=== PATIENT | female | born 1970 | race Caucasian/White ===

== ENCOUNTER 2017-07-31 01:21 | Emergency (ER) | payer BC ==
[~2017-07-31] VITALS: Ht 167.6 cm; Wt 96.0 kg
[~2017-07-31 01:21] MED LIST: CALC500C70 PO; CHOL100010 PO; FOLI1TAB8 PO; HYDR0.5T PO; METH2.5T PO; MTR600X PO; MULT-506 PO; PLQ200 PO; SPR25 PO
[2017-07-31 01:23] VITALS: TEMP 36.4; Ht 167.6 cm; Wt 96.0 kg
[2017-07-31] MEDS ORDERED: HYDR200T5 PO (01:49)
[2017-07-31] MEDS ORDERED: KETOROLAC TROMETHAMINE 30 MG/ML VIAL IV STA (01:59)
[2017-07-31] MEDS ORDERED: SODIUM CHLORIDE 0.9% 500ML 500 ML IV STA (01:59)
[2017-07-31] MEDS ORDERED: ONDANSETRON INJ 2 MG/ML 2 ML VIAL IV STA (01:59)
[2017-07-31 02:10] LABS: BASO % 0.3 %; BASO ABS # 0.02 K/uL (0-0.2); EOS % 3.3 %; HEMATOCRIT 40.8 % (37-47); IG# 0.02 K/uL (0.00-0.02); LYMPH % 33.2 %; LYMPH ABS # 1.99 K/uL (1.2-3.4); MEAN CELL VOLUME 89.3 fL (80-100); MEAN CORPUSCULAR HEMOGLOBIN 30.6 pg (25-34); MEAN CORPUSCULAR HGB CONC 34.3 g/dl (32-36); MEAN PLATELET VOLUME 10.8 fL (7.4-10.4); MONO % 6.2 %; MONO ABS # 0.37 K/uL (0.11-0.59); NEUT % 56.7 %; NEUT ABS # 3.39 K/uL (1.4-6.5); PLATELET COUNT 170 K/uL (130-400); RED CELL DISTRIBUTION WIDTH SD 41.8 fL (36.4-46.3); WHITE BLOOD COUNT 5.99 K/uL (4.8-10.8)
[2017-07-31 02:18] LABS: ALBUMIN 3.4 gm/dl (3.4-5.0); CALCIUM 8.6 mg/dl (8.5-10.1); CREATININE 1.03 mg/dl (0.60-1.20); POTASSIUM 3.2 mmol/L (3.5-5.1)
[2017-07-31 02:21] LABS: TOTAL PROTEIN 7.4 gm/dl (6.4-8.2)
--- NOTE | 2017-07-31 02:25 | EMERGENCY ROOM VISIT NOTE ---
History Report prepared by Jaylene: Monie Coughlin Under the Supervision of: Nicolas ShawO. First contact with patient: 01:46 Chief Complaint: ABDOMINAL PAIN Stated Complaint: SEVERE ABDOMINAL PAIN NEAR LEFT KIDNEY History of Present Illness The patient is a 47 year old female who presents to the Emergency Room with complaints of constant abdominal pain starting yesterday morning. The patient states that she has had small kidney stones in the past. She reports mid- morning yesterday she started having sharp pain on her left side. She states that she took a Hydrocodone about noon yesterday. She states that this took most of her pain away. She reports that it started to bother her again in the evening so she took another Hydrocodone at 6. She states that she went to bed and woke up with sharp shooting pains this morning. She reports that she took another Hydrocodone at midnight, but it did not help for very long like before. The patient complains of nausea. The patient denies vomiting, fevers, chills, urinary symptoms, cough, rashes, and sores. She notes a history of a hysterectomy and endometriosis. Source of History: patient Onset: yesterday morning Position: abdomen Quality: sharp Timing: constant Modifying Factors (Relieving): other (Hydrocodone) Associated Symptoms: + nausea, No fevers, No chills, No cough, No vomiting, No urinary symptoms, No rash Note: The patient denies sores. Review of Systems See HPI for pertinent positives & negatives. A total of 10 systems reviewed and were otherwise negative. Past Medical & Surgical Medical Problems: (1) Rheumatoid arthritis Surgical Problems: (1) H/O: hysterectomy (2) Hx of hysterectomy Family History Cancer Gallbladder disease Social History Smoking Status: Never Smoker Alcohol Use: none Marital Status: Housing Status: lives with family Occupation Status: employed Current/Historical Medications Scheduled Folic Acid (Folvite), 1 MG PO 6XWK Hydroxychloroquine Sulfate (Hydroxychloroquine Sulfat), 300 MG PO 3XWK Hydroxychloroquine Sulfate (Plaquenil), 200 MG PO DIRECTED Methotrexate (Methotrexate), 1 TAB PO WK Multivitamin (Multivitamin), 1 TAB PO DAILY Ondasetron Odt (Zofran Odt), 4 MG SL Q6H Tamsulosin Hcl (Flomax), 0.4 MG PO DAILY Allergies Coded Allergies: No Known Allergies (Verified , 07/31/17) Physical Exam Vital Signs Date Time Temp Pulse Resp B/P (MAP) Pulse Ox O2 Delivery O2 Flow Rate FiO2 07/31/17 04:07 74 18 130/88 99 Room Air 07/31/17 02:33 85 18 135/84 96 Room Air 07/31/17 02:17 68 18 154/90 97 Room Air 07/31/17 01:23 36.4 78 20 158/96 100 Room Air Physical Exam GENERAL: alert, uncomfortable appearing, well nourished, no distress, non-toxic EYE EXAM: normal conjunctiva, PERRL and EOM's grossly intact OROPHARYNX: no exudate, no erythema, lips, buccal mucosa, and tongue normal and mucous membranes are moist NECK: supple, no nuchal rigidity, no adenopathy, non-tender LUNGS: Clear to auscultation. Normal chest wall mechanics HEART: no murmurs, S1 normal and S2 normal ABDOMEN: abdomen soft, non-tender, normo-active bowel sounds, no masses, no rebound or guarding. BACK: Back is symmetrical on inspection and there is no deformity, no midline tenderness, no CVA tenderness. SKIN: no rashes and no bruising UPPER EXTREMITIES: upper extremities are grossly normal. LOWER EXTREMITIES: No pitting edema. NEURO EXAM: Normal sensorium, cranial nerves II-XII grossly intact, normal speech, no gross weakness of arms, no gross weakness of legs. Medical Decision & Procedures ER Provider Diagnostic Interpretation: Radiology results have been interpreted by the radiologist and reviewed by me. CT ABDOMEN & PELVIS Without Contrast: Comparison: CT abdomen and pelvis 06/10/16 6 mm stone left ureteropelvic junction and mild left hydronephrosis. Numerous additional nonobstructing renal stones bilaterally. Gallbladder is distended and question gallstones and/or sludge. No evidence of gallbladder wall thickening or adjacent inflammatory changes. 1 cm cyst left lobe of liver. Degenerative changes of spine, worse at L4-L5. Radiologist: Kevan Bob MD Study ready at 02:36 and initial results transmitted at 02:45. Laboratory Results 07/31/17 01:45 Red Blood Count 4.57, Mean Corpuscular Volume 89.3, Mean Corpuscular Hemoglobin 30.6, Mean Corpuscular Hemoglobin Concent 34.3, Mean Platelet Volume 10.8, Neutrophils (%) (Auto) 56.7, Lymphocytes (%) (Auto) 33.2, Monocytes (%) (Auto) 6.2, Eosinophils (%) (Auto) 3.3, Basophils (%) (Auto) 0.3, Neutrophils # (Auto) 3.39, Lymphocytes # (Auto) 1.99, Monocytes # (Auto) 0.37, Eosinophils # (Auto) 0.20, Basophils # (Auto) 0.02 07/31/17 01:45 Test 07/31/17 01:45 07/31/17 02:10 White Blood Count 5.99 K/uL (4.8-10.8) Red Blood Count 4.57 M/uL (4.2-5.4) Hemoglobin 14.0 g/dL (12.0-16.0) Hematocrit 40.8 % (37-47) Mean Corpuscular Volume 89.3 fL (80-100) Mean Corpuscular Hemoglobin 30.6 pg (25-34) Mean Corpuscular Hemoglobin Concent 34.3 g/dl (32-36) Platelet Count 170 K/uL (130-400) Mean Platelet Volume 10.8 fL (7.4-10.4) Neutrophils (%) (Auto) 56.7 % Lymphocytes (%) (Auto) 33.2 % Monocytes (%) (Auto) 6.2 % Eosinophils (%) (Auto) 3.3 % Basophils (%) (Auto) 0.3 % Neutrophils # (Auto) 3.39 K/uL (1.4-6.5) Lymphocytes # (Auto) 1.99 K/uL (1.2-3.4) Monocytes # (Auto) 0.37 K/uL (0.11-0.59) Eosinophils # (Auto) 0.20 K/uL (0-0.5) Basophils # (Auto) 0.02 K/uL (0-0.2) RDW Standard Deviation 41.8 fL (36.4-46.3) RDW Coefficient of Variation 13.0 % (11.5-14.5) Immature Granulocyte % (Auto) 0.3 % Immature Granulocyte # (Auto) 0.02 K/uL (0.00-0.02) Anion Gap 8.0 mmol/L (3-11) Est Creatinine Clear Calc Drug Dose 78.0 ml/min Estimated GFR () 74.4 Estimated GFR (Non- 64.2 BUN/Creatinine Ratio 11.8 (10-20) Calcium Level 8.6 mg/dl (8.5-10.1) Total Bilirubin 0.5 mg/dl (0.2-1) Aspartate Amino Transf (AST/SGOT) 26 U/L (15-37) Alanine Aminotransferase (ALT/SGPT) 40 U/L (12-78) Alkaline Phosphatase 86 U/L (45-117) Total Protein 7.4 gm/dl (6.4-8.2) Albumin 3.4 gm/dl (3.4-5.0) Globulin 4.0 gm/dl (2.5-4.0) Albumin/Globulin Ratio 0.9 (0.9-2) Human Chorionic Gonadotropin, Qual NEG (NEG) Urine Color YELLOW Urine Appearance CLEAR (CLEAR) Urine pH 7.5 (4.5-7.5) Urine Specific [place] 1.013 (1.000-1.030) Urine Protein NEG (NEG) Urine Glucose (UA) NEG (NEG) Urine Ketones NEG (NEG) Urine Occult Blood 3+ (NEG) Urine Nitrite NEG (NEG) Urine Bilirubin NEG (NEG) Urine Urobilinogen NEG (NEG) Urine Leukocyte Esterase NEG (NEG) Urine WBC (Auto) 1-5 /hpf (0-5) Urine RBC (Auto) >30 /hpf (0-4) Urine Hyaline Casts (Auto) 1-5 /lpf (0-5) Urine Epithelial Cells (Auto) >30 /lpf (0-5) Urine Bacteria (Auto) NEG (NEG) Laboratory results per my review. Medications Administered Medications (Trade) Dose Ordered Sig/Shankar Route Start Time Stop Time Status Last Admin Dose Admin Ketorolac Tromethamine (Toradol Inj) 30 mg NOW STAT IV 07/31/17 01:59 07/31/17 02:00 DC 07/31/17 02:13 30 MG Sodium Chloride 500 ml @ 999 mls/hr Q31M STAT IV 07/31/17 01:59 07/31/17 02:29 DC 07/31/17 02:13 999 MLS/HR Ondansetron HCl (Zofran Inj) 4 mg NOW STAT IV 07/31/17 01:59 07/31/17 02:00 DC 07/31/17 02:14 4 MG Tamsulosin HCl (Flomax Cap) 0.4 mg NOW ONCE PO 07/31/17 03:45 07/31/17 03:46 DC 07/31/17 04:08 0.4 MG Acetaminophen/ Hydrocodone Bitart (Shelby 5/325 Tab) 1 tab NOW STAT PO 07/31/17 04:02 07/31/17 04:03 DC 07/31/17 04:08 1 TAB ED Course 0148: The patient was evaluated in room B12B. A complete history and physical exam was performed. 0159: Ordered Zofran Inj 4 mg IV, NSS 500 ml @ 999 mls/hr IV, Toradol Inj 30 mg IV. 0335: Upon reevaluation, the patient is feeling better. I discussed the findings and the treatment plan with the patient. She verbalizes agreement and understanding. The patient was discharged home. 0345: Ordered Flomax Cap 0.4 mg PO. 0402: Ordered Shelby 5/325 Tab 1 tab PO. Medical Decision The patient is a 47 year old female who presents to the Emergency Room with complaints of constant abdominal pain starting yesterday morning. Differential diagnosis: Etiologies such as renal colic, appendicitis, diverticulitis, mesenteric ischemia, aortic pathology, infections, inflammatory bowel disease, PUD, biliary pathology, UTI, as well as others were entertained. Patient improved here with medications. No evidence of concurrent infection or worsening renal failure. Doubt concurrent pyelonephritis, no evidence of bacteremia/sepsis. Vital signs stable throughout. Patient started on Flomax, encouraged to drink plenty of water. Discussed need for close follow-up with family doctor and/or urology. Discussed symptoms to watch and return for, discussed use of hydrocodone which she has at home, possible adverse side effects of hydrocodone, she verbalized understanding was agreeable with plan. I do not suspect any additional acute GI or NEON SIGN INST[employer]ER pathology. I do not suspect additional pulmonary pathology. Medication Reconcilliation Current Medication List: was personally reviewed by me Blood Pressure Screening Patient's blood pressure: Elevated blood pressure Blood pressure disposition: Elevated BP felt to be situational Impression Primary Impression: Ureterolithiasis Additional Impression: Renal colic on left side Scribe Attestation The scribe's documentation has been prepared under my direction and personally reviewed by me in its entirety. I confirm that the note above accurately reflects all work, treatment, procedures, and medical decision making performed by me. Departure Information Dispostion Home / Self-Care Prescriptions Ondasetron Odt (ZOFRAN ODT) 4 Mg Tab 4 MG SL Q6H for Nausea, #20 TAB Prov: Lizz Martínez, DO 07/31/17 Tamsulosin Hcl (FLOMAX) 0.4 Mg Cap 0.4 MG PO DAILY, #10 CAP Prov: Lizz Martínez, DO 07/31/17 Referrals Tereza Guzman D.O. (PCP) Forms Call Back Authorization, HOME CARE DOCUMENTATION FORM, IMPORTANT VISIT INFORMATION Patient Instructions My [facility] Additional Instructions Please drink plenty of water. You may use the stronger pain medication as prescribed. Take the Flomax daily until he passed the kidney stone. You may use a nausea medication as needed. Please monitor for constipation as it is a common side effect of the narcotic pain medication. Do not take the narcotic pain medication and drive. Please continue your other routine medications and follow up with your family doctor. If you have any worsening pain, develop vomiting, fevers or chills, or unable to urinate, or you've any other new concerns, please return the emergency room. Problem Qualifiers
[2017-07-31] MEDS ORDERED: TAMSULOSIN HCL 0.4 MG CAP PO ONE (03:45)
[2017-07-31] MEDS ORDERED: ONDA4TAB10 SL (04:01)
[2017-07-31] MEDS ORDERED: TAMS0.4C38 PO (04:01)
[2017-07-31] MEDS ORDERED: HYDROCODONE/ACETAMIN 5/325MG TAB PO STA (04:02)
[2017-07-31 04:07] VITALS: BP 130/88; PULSE 74; O2SAT 99
--- NOTE | 2017-07-31 08:04 | DIAGNOSTIC IMAGING REPORT ---
ABD/PELVIS WITHOUT FOR STONE CLINICAL HISTORY: 47 years-old Female presenting with left flank pain, hx stones. TECHNIQUE: Multidetector CT of the abdomen and pelvis was performed without the use of intravenous contrast. IV contrast: None. A dose lowering technique was used consistent with the principles of ALARA (as low as reasonably achievable). COMPARISON: 06/10/2016. CT DOSE (mGy.cm): The estimated cumulative dose is 1522.49 mGy.cm. FINDINGS: Engraver Automatic topogram: Unremarkable. Lung bases: Lungs and pleural spaces clear. Normal heart size. No pericardial or pleural effusion. Fat-containing left Bochdalek hernia. Liver: Normal morphology. Normal density. Lobular hypodense lesion in the lateral left hepatic lobe indeterminate but likely hepatic cyst. Biliary: No gross biliary ductal dilatation allowing for noncontrast technique. Gallbladder likely physiologically distended. Gallbladder sludge versus gallstones likely present. Pancreas: Normal noncontrast appearance. Spleen: Normal noncontrast appearance. Adrenal glands: Normal noncontrast appearance. Kidneys and ureters: Obstructing 6 mm calculus at the left ureteropelvic junction. Mild left pelvocaliectasis. Remainder of the left ureter is normal. Bilateral nephrolithiasis, the largest calculus on the right measuring 6 mm and on the left measuring 7 mm. Bladder: Normal. Pelvic organs: Uterus surgically absent. No adnexal masses. Bowel: Normal appendix. No bowel obstruction. Peritoneal cavity: No free fluid or intraperitoneal gas. Lymph nodes: No gross lymphadenopathy allowing for noncontrast technique. Vasculature: Normal noncontrast appearance. Abdominal wall: Small fat-containing umbilical hernia. Musculoskeletal: Bone island suspected in the right femoral head. Lucent lesion more anteriorly in the right femoral head possibly cyst. Mild degenerative changes evident in the acetabula and spine. Osteopenia. IMPRESSION: 1. Obstructing 6 mm calculus at the left ureteropelvic junction. Mild left hydronephrosis. 2. Extensive bilateral nephrolithiasis. 3. Suspected gallbladder sludge or gallstones. 4. Osteopenia. Electronically signed by: Lamont Chappell M.D. 07/31/2017 8:03 AM Dictated Date/Time: 07/31/2017 7:05 AM
== END 2017-07-31 04:20 | disposition home or self-care (01) ==
LOC: C.EDB 01:22
DX: N20.1 Calculus of ureter (principal); N23 Unspecified renal colic; M06.9 Rheumatoid arthritis, unspecified; Z80.9 Family history of malignant neoplasm, unspecified; Z83.79 Family history of other diseases of the digestive system